=== PATIENT | female | born 1955 | race Caucasian/White ===

== ENCOUNTER 2019-01-29 15:11 | Emergency (ER) | payer OTHER ==
[~2019-01-29] VITALS: Ht 162.6 cm; Wt 127.0 kg
[2019-01-29 15:32] VITALS: BP 181/102
[2019-01-29] MEDS ORDERED: DEMEROL IM STA (15:48)
--- NOTE | 2019-01-29 15:53 | ER.PDOC ---
General Chief Complaint: Extremities Stated Complaint: EXTREMITIES/ RT LEG Time seen by MD: 15:50 Source: patient Exam Limitations: no limitations History of Present Illness Initial Comments Right hip and knee pain S/P fall. Patient refused hitting her head. Occurred: just prior to arrival Severity: moderate Injuries/Pain Location: lower extremity Context: Lost Balance, Tripped Loss of Consciousness: No Loss of Consciousness Associated Symptoms: denies symptoms Allergies: Coded Allergies: codeine (Verified Allergy, Intermediate, 01/29/19) Past Medical History Medical History: hypertension Surgical History: knee Social History Smoking: cigarettes, less than 1 pack/day Alcohol Use: none Drug Use: marijuana Review of Systems Constitutional: no symptoms reported Respiratory: no symptoms reported Cardiovascular: no symptoms reported Gastrointestinal: no symptoms reported Musculoskeletal: see HPI All Other Systems: Reviewed and Negative Physical Exam General Appearance: No Apparent Distress, WD/WN Head: No Evidence of Injury Neck: Non-Tender, Normal Alignment, Nexus criteria neg, Normal Inspection Cardiovascular/Respiratory: Regular Rate, Rhythm, No M/R/G, Normal Peripheral Pulses, No JVD, Normal Breath Sounds, No Respiratory Distress Gastrointestinal: Normal Bowel Sounds, No Organomegaly, No Pulsatile Mass, Non Tender, Soft Back: Normal Inspection, No CVA Tenderness, No Vertebral Tenderness Extremities: Pain With Movement (right hip and knee), Tenderness (right knee with swelling) 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, No Motor/Sensory Deficits, Alert, Normal Mood/Affect, Oriented x 3 Skin: Normal Color, Warm/Dry [place] Coma Score Best Eye Response: (4) Open Spontaneously Best Verbal Response: (5) Oriented Best Motor Response: (6) Obeys Commands Results/Orders Results/Orders Orders - MEAGAN PADILLA MD Xr Hip Rt 2v (01/29/19 15:48) Xr Pelvis (01/29/19 15:48) Xr Knee Rt 2v (01/29/19 15:48) Meperidine Hcl/Pf (Demerol) (01/29/19 15:48) Meperidine Hcl/Pf (Demerol) (01/29/19 16:26) Vital Signs Date Time Temp Pulse Resp B/P (MAP) Pulse Ox O2 Delivery O2 Flow Rate FiO2 01/29/19 15:32 98.4 87 18 181/102 (128) 94 Room Air 98.4 01/29/19 15:26 98.4 86 20 94 Room Air 98.4 01/29/19 15:26 98.4 87 18 98.4 Administered Medications Medications (Trade) Dose Ordered Sig/Meredith Route PRN Reason Start Time Stop Time Status Last Admin Dose Admin Meperidine HCl (Demerol) 50 mg STAT STAT IM 01/29/19 15:48 01/29/19 15:51 DC 01/29/19 16:21 50 MG Progress Progress X rays right Knee: Soft tissue swelling and moderate right knee effusion. 2. Tricompartmental degenerative changes, as above. EKG/XRAY/CT/US XRAY Comments: No fracture of right hip Departure Time of Disposition: 17:12 Disposition: 01 HOME, SELF-CARE Impression: Primary Impression: Right knee injury Additional Impression: Injury of hip, right Condition: Stable Referrals: PCP,UNKNOWN (PCP) PRIMARY CARE PROVIDER Additional Instructions: Tramadol Ibuprofen Ice F/U with PCP next week Duration or Time Spent with Pa: 60 mins Problem Qualifiers Primary Impression: Right knee injury Encounter type: initial encounter Qualified Codes: S89.91XA - Unspecified injury of right lower leg, initial encounter Additional Impression: Injury of hip, right Encounter type: initial encounter Qualified Codes: S79.911A - Unspecified injury of right hip, initial encounter MEAGAN PADILLA MD Jan 29, 2019 15:53
[2019-01-29] MEDS ORDERED: DEMEROL ONE (16:26)
--- NOTE | 2019-01-29 16:50 | DIREP ---
PROCEDURE:XRAY PELVIS 1-2 VWS COMPARISON:None. INDICATIONS:Right hip pain FINDINGS: Single view of the pelvis. Mild degenerative changes of the hips bilaterally. No fracture or dislocation identified. No radiopaque foreign body. CONCLUSION: 1. Mild degenerative changes of the hips. Dictated by: Mónica Pascal MD on 01/29/2019 at 04:45 PM
--- NOTE | 2019-01-29 16:51 | DIREP ---
PROCEDURE:XRAY KNEE 2 VWS-RT COMPARISON:None. INDICATIONS:Pain S/P fall FINDINGS: Two views of the right knee. Soft tissue swelling. Moderate to severe joint space narrowing involving the medial compartment, moderate joint space narrowing involving the lateral compartment. Tricompartmental degenerative changes are present with marginal spurs. Moderate effusion. No fracture or dislocation identified. No radiopaque foreign body. CONCLUSION: 1. Soft tissue swelling and moderate right knee effusion. 2. Tricompartmental degenerative changes, as above. Dictated by: Mónica Pascal MD on 01/29/2019 at 04:49 PM
--- NOTE | 2019-01-29 16:53 | DIREP ---
PROCEDURE:XRAY HIP MIN 2VW-RT COMPARISON:[facility], , XRAY PELVIS 1-2 VWS, 01/29/2019, 03:42 PM. INDICATIONS:Pain S/P fall FINDINGS: Two views of the right hip. No fracture or dislocation identified. Mild degenerative changes at the right hip. If there persistent clinical concern for fracture, consider CT bony pelvis. No radiopaque foreign body. CONCLUSION: 1. Right hip, no fracture identified. 2. Mild degenerative changes. Dictated by: Mónica Pascal MD on 01/29/2019 at 04:51 PM
[2019-01-29 17:53] VITALS: BP 134/78
== END 2019-01-29 17:47 | disposition home or self-care (01) ==
LOC: ER 15:11
DX: S79.911A Unspecified injury of right hip, initial encounter (principal); S89.91XA Unspecified injury of right lower leg, initial encounter; I10 Essential (primary) hypertension; F17.210 Nicotine dependence, cigarettes, uncomplicated; Z88.5 Allergy status to narcotic agent; W01.0XXA Fall on same level from slipping, tripping and stumbling without subsequent striking against object, initial encounter; Y93.89 Activity, other specified; Y92.89 Other specified places as the place of occurrence of the external cause; Y99.8 Other external cause status
CPT/HCPCS: 72170; 73502; 73560; 96372; 99284; J2175